=== PATIENT | female | born 1960 | race Caucasian/White ===

== ENCOUNTER 2023-01-30 14:32 | Emergency (ER) | payer MEDICAID ==
[~2023-01-30] VITALS: Ht 162.6 cm; Wt 68.0 kg
[2023-01-30] MEDS ORDERED: LIDOCAINE HCL 1% 20 ML VIAL TP ONE (15:45)
[2023-01-30] MEDS ORDERED: LIDOCAINE HCL 1% 20 ML VIAL ONE (15:51)
[2023-01-30] MEDS ORDERED: CEPH500T PO (16:12)
[2023-01-30] MEDS ORDERED: BACITRACIN ZINC OINT 15 GM TUBE ONE (16:15)
[2023-01-30] MEDS ORDERED: BACITRACIN ZINC OINT 15 GM TUBE TOP ONE (16:15)
[2023-01-30 16:22] VITALS: BP 104/68
--- NOTE | 2023-01-30 16:22 | NUR ---
Patient discharged to home in stable condition. Written and verbal after care instructions given. Patient verbalizes understanding of instructions. Stressed follow up or return to ER for worsening s/s.
== END 2023-01-30 16:23 | disposition home or self-care (01) ==
LOC: ER 14:32
DX: L02.411 Cutaneous abscess of right axilla (principal); L72.3 Sebaceous cyst
CPT/HCPCS: 99284; 10060; 76536; J3490; A4663

== ENCOUNTER 2023-04-27 15:16 | Emergency (ER) | payer SELFPAY ==
[~2023-04-27] VITALS: Ht 167.6 cm; Wt 69.9 kg
[~2023-04-27 15:16] MED LIST: CEPH500T PO
[2023-04-27] MEDS ORDERED: ACETAMINOPHEN ES 500 MG TABLET PO ONE (15:30)
--- NOTE | 2023-04-27 15:33 | NUR ---
Bedside x-ray in progress.
[2023-04-27] MEDS ORDERED: ACETAMINOPHEN ES 500 MG TABLET ONE (15:41)
--- NOTE | 2023-04-27 15:43 | NUR ---
Patient resting in bed, no s/s of any distress noted has been updated on plan of care and mnedicated as per order.
[2023-04-27 16:24] VITALS: BP 122/67
== END 2023-04-27 16:25 | disposition home or self-care (01) ==
LOC: ER 15:18
DX: S60.221A Contusion of right hand, initial encounter (principal); Z79.899 Other long term (current) drug therapy; W22.8XXA Striking against or struck by other objects, initial encounter; Y93.89 Activity, other specified; Y92.89 Other specified places as the place of occurrence of the external cause; Y99.8 Other external cause status
CPT/HCPCS: 73130; A4663; A9150

== ENCOUNTER 2023-04-30 18:32 | Emergency (ER) | payer SELFPAY ==
[~2023-04-30] VITALS: Ht 167.6 cm; Wt 69.9 kg
[2023-04-30] MEDS ORDERED: HYDR-4209 PO (19:03)
[2023-04-30] MEDS ORDERED: ONDA4TAB5 PO (19:03)
--- NOTE | 2023-04-30 19:28 | NUR ---
Patient discharged to home in stable condition. Written and verbal after care instructions given. Patient verbalizes understanding of instructions. Stressed follow up or return to ER for worsening s/s. Patient is a/ox4, NAD noted. Patient ambulated with steady gait
[2023-04-30 19:29] VITALS: BP 123/73
== END 2023-04-30 19:30 | disposition home or self-care (01) ==
LOC: ER 18:32
DX: S60.221A Contusion of right hand, initial encounter (principal); Z79.899 Other long term (current) drug therapy; X58.XXXA Exposure to other specified factors, initial encounter; Y93.89 Activity, other specified; Y92.89 Other specified places as the place of occurrence of the external cause; Y99.8 Other external cause status
CPT/HCPCS: 73130; A4663